=== PATIENT | male | born 2000 | race Caucasian/White ===

== ENCOUNTER 2022-03-28 12:44 | Outpatient (CLI) | payer BC, SELFPAY | END 2022-03-28 12:45 | disposition home or self-care (01) | LOC: LKVREF 03-29 08:54 | PROVIDERS: Visit Provider Registered Nurse | DX: R30.0 Dysuria (principal); Z20.2 Contact with and (suspected) exposure to infections with a predominantly sexual mode of transmission | CPT/HCPCS: 87491; 87591 ==